=== PATIENT | female | born 1945 | race African-American/Black ===

== ENCOUNTER 2022-12-16 17:46 | Inpatient (IN) | payer BC, OTHER ==
[~2022-12-16] VITALS: Ht 154.9 cm; Wt 50.8 kg
[2022-12-16 20:18] LABS: CLARITY URINE CLEAR (CLEAR); COLOR URINE YELLOW (YELLOW); KETONES URINE TRACE (NEGATIVE); LEUKOCYTE ESTERASE URINE NEGATIVE (NEGATIVE); NITRITE URINE NEGATIVE (NEGATIVE); OCCULT BLOOD URINE NEGATIVE (NEGATIVE); PH URINE 7.5 (4.5-8.0); PROTEIN URINE NEGATIVE (NEGATIVE); SPECIFIC GRAVITY URINE 1.013 (1.005-1.030)
[2022-12-16 20:44] LABS: BASOPHILS % 0.2 % (0.0-2.0); EOSINOPHILS % 0.1 % (0.0-5.0); HEMATOCRIT. 33.5 % (36.0-48.0); HEMOGLOBIN. 11.4 g/dL (12.0-16.0); LYMPHOCYTES % 7.1 % (20.0-50.0); MEAN CORPUSCULAR HEMOGLOBIN 33.2 pg (28.0-32.0); MEAN CORPUSCULAR VOLUME 97.9 fL (81.0-99.0); MONOCYTES % 13.9 % (2.0-8.0); NEUTROPHILS % 78.7 % (40.0-76.0); PLATELET 206 x1000/uL (130-400); RED BLOOD CELL COUNT 3.42 mill/uL (4.2-5.4); RED CELL DISTRIBUTION WIDTH 13.8 % (11.6-14.6)
[2022-12-16 20:50] LABS: CHLORIDE 90 mEq/L (98-107)
[2022-12-17] MEDS ORDERED: DOCUSATE SODIUM 100MG CAPSULE PO PRN (00:15)
[2022-12-17] MEDS ORDERED: ACETAMINOPHEN 325MG TABLET PO PRN ×2 (00:15)
[2022-12-17] MEDS ORDERED: GUAIFENESIN 200MG/10ML SUGAR FREE UDC PO PRN (00:15)
[2022-12-17] MEDS ORDERED: IPRATROPIUM/ALBUTEROL 0.5-3(2.5)MG/3ML NEB HHN PRN (00:15)
[2022-12-17] MEDS ORDERED: ONDANSETRON HCL 4MG/2ML INJ IV PRN (00:15)
[2022-12-17] MEDS ORDERED: POTASSIUM CHLORIDE 20MEQ TABLET SR PO NR (00:30)
[2022-12-17] MEDS: SODIUM CHLORIDE 0.9% 1,000 ML IV SCH ×2 (00:48→14:39)
[2022-12-17 01:01] LABS: PHOSPHORUS 2.4 mg/dL (2.5-4.9)
[2022-12-17 01:40] LABS: VITAMIN B12 SERUM 423 pg/mL (211-911)
[2022-12-17 02:43] LABS: INR 1.1; PROTHROMBIN TIME 11.6 sec (9.6-11.0)
[2022-12-17] MEDS ORDERED: ATEN-42 PO (04:03)
[2022-12-17] MEDS ORDERED: CHOL-36 PO (04:03)
[2022-12-17] MEDS ORDERED: LOVA40TA73 PO (04:03)
[2022-12-17] MEDS ORDERED: CALC-36 PO (04:03)
[2022-12-17 04:26] VITALS: BP 131/53
[2022-12-17 04:30] VITALS: BP 131/53
[2022-12-17 08:00] VITALS: BP 155/67
[2022-12-17] MEDS: ENOXAPARIN 40MG/0.4ML SYR SUBCUT SCH (09:00)
[2022-12-17] MEDS ORDERED: LISINOPRIL 10MG TABLET PO SCH (09:00)
[2022-12-17 09:59] LABS: HEMATOCRIT. 28.4 % (36.0-48.0); HEMOGLOBIN. 9.8 g/dL (12.0-16.0); MEAN CORPUSCULAR HEMOGLOBIN 33.1 pg (28.0-32.0); MEAN CORPUSCULAR VOLUME 95.8 fL (81.0-99.0); MEAN PLATELET VOLUME 8.6 fl (7.4-10.4); PLATELET 177 x1000/uL (130-400); RED BLOOD CELL COUNT 2.97 mill/uL (4.2-5.4); RED CELL DISTRIBUTION WIDTH 13.7 % (11.6-14.6)
[2022-12-17 10:09] LABS: CHLORIDE 96 mEq/L (98-107)
[2022-12-17 10:22] LABS: CREATINE KINASE 245 IU/L (26-192); HDL CHOLESTEROL 93 mg/dL (40-59); LDL CHOLESTEROL 47 mg/dL (5-100); T4 FREE 1.39 ng/dL (0.76-1.46)
[2022-12-17 10:42] LABS: PLATELET ESTIMATE NORMAL
[2022-12-17 12:00] VITALS: BP 136/73
[2022-12-17] MEDS: AMLODIPINE 10MG TABLET PO SCH (14:12)
[2022-12-17] MEDS ORDERED: SODIUM PHOS,M-BASIC-D-BASIC 30 MM in DEXT 5% WATER 500 ML IV ONE (15:00)
[2022-12-17] MEDS ORDERED: KCL 20MEQ/100ML PREMIX 100 ML IV NR (15:00)
[2022-12-17 16:00] VITALS: BP 130/70
[2022-12-17 16:45] LABS: CREATINE KINASE 269 IU/L (26-192)
[2022-12-17] MEDS ORDERED: ALBUTEROL (0.083%) 2.5MG/3ML NEB HHN PRN (17:15)
[2022-12-17] MEDS ORDERED: IPRATROPIUM BROMIDE (0.02%) 0.5MG/2.5ML NEB HHN PRN (17:15)
[2022-12-17] MEDS: MULTIVITAMINS,THER W-MINERALS TABLET PO SCH (17:59)
[2022-12-17 20:00] VITALS: BP 129/69
[2022-12-17] MEDS: FAMOTIDINE 20MG TABLET PO SCH (21:06)
[2022-12-18 00:15] VITALS: BP 143/79
[2022-12-18] MEDS: SODIUM CHLORIDE 0.9% 1,000 ML IV SCH (02:58)
[2022-12-18] MEDS ORDERED: CLONIDINE 0.1MG TABLET PO PRN (03:45)
[2022-12-18 04:00] VITALS: BP 166/83
[2022-12-18 08:00] VITALS: BP 158/79
[2022-12-18] MEDS: MULTIVITAMINS,THER W-MINERALS TABLET PO SCH (08:27)
[2022-12-18] MEDS: ENOXAPARIN 40MG/0.4ML SYR SUBCUT SCH (08:34)
[2022-12-18] MEDS: AMLODIPINE 10MG TABLET PO SCH (08:34)
[2022-12-18 09:25] LABS: HEMOGLOBIN 11.4 g/dL (12.0-16.0); MEAN CORPUSCULAR HEMOGLOBIN 32.9 pg (28.0-32.0); MEAN CORPUSCULAR VOLUME 95.4 fL (81.0-99.0); PLATELET 199 x1000/uL (130-400); RED BLOOD CELL COUNT 3.46 mill/uL (4.2-5.4); RED CELL DISTRIBUTION WIDTH 13.7 % (11.6-14.6)
[2022-12-18 09:33] LABS: CHLORIDE 87 mEq/L (98-107)
[2022-12-18] MEDS: ASCORBIC ACID 250 MG TABLET PO SCH (09:59)
[2022-12-18] MEDS: ZINC SULFATE 220 MG ( 50 ) CAPSULE PO SCH (09:59)
[2022-12-18] MEDS ORDERED: AZITHROMYCIN 500 MG in DEXT 5% WATER 250 ML IV SCH (10:00)
[2022-12-18 10:27] LABS: HDL CHOLESTEROL 98 mg/dL (40-59); PHOSPHORUS 2.8 mg/dL (2.5-4.9); T4 FREE 1.45 ng/dL (0.76-1.46)
[2022-12-18] MEDS ORDERED: SODIUM CHLORIDE 0.45% 1,000 ML IV SCH (11:00)
[2022-12-18] MEDS ORDERED: POTASSIUM CHLORIDE 20MEQ TABLET SR PO NR (11:15)
[2022-12-18] MEDS ORDERED: SODIUM CHLORIDE 0.9% 1,000 ML IV SCH (11:30)
[2022-12-18] MEDS: ATENOLOL 25MG TABLET PO SCH (11:31)
[2022-12-18 12:00] VITALS: BP 123/65
[2022-12-18] MEDS ORDERED: SODIUM PHOS,M-BASIC-D-BASIC 20 MM in DEXT 5% WATER 243.3333 ML IV NR (13:00)
[2022-12-18] MEDS: KCL 20MEQ/100ML PREMIX 100 ML IV SCH ×2 (13:19→15:52)
[2022-12-18 15:02] LABS: LDL CHOLESTEROL 54 mg/dL (5-100)
[2022-12-18 16:00] VITALS: BP 113/74
[2022-12-18] MEDS: SODIUM CHLORIDE 0.9% IV SCH (17:56)
[2022-12-18] MEDS: POTASSIUM ACETATE IV SCH (17:56)
[2022-12-18] MEDS: VANCOMYCIN 1000MG/20ML ORAL SOLN PO SCH (17:57)
[2022-12-18 20:00] VITALS: BP 141/89
[2022-12-18] MEDS ORDERED: MEDICATION NOT ON FORMULARY EA (Lovastatin 40 MG) PO SCH (21:00)
[2022-12-18] MEDS ORDERED: ATORVASTATIN CALCIUM 10MG TABLET PO SCH (21:00)
[2022-12-18] MEDS: FAMOTIDINE 20MG TABLET PO SCH (22:25)
[2022-12-18 23:38] LABS: CREATINE KINASE MB FRACTION 8.7 ng/mL (0.5-3.6)
[2022-12-19] VITALS: BP 162/88
[2022-12-19] MEDS: VANCOMYCIN 1000MG/20ML ORAL SOLN PO SCH ×3 (00:54→12:00)
[2022-12-19 04:00] VITALS: BP 156/95
[2022-12-19 06:39] LABS: HEMATOCRIT 37.8 % (36.0-48.0); MEAN CORPUSCULAR HEMOGLOBIN 32.8 pg (28.0-32.0); MEAN CORPUSCULAR VOLUME 95.5 fL (81.0-99.0); PLATELET 212 x1000/uL (130-400); RED BLOOD CELL COUNT 3.96 mill/uL (4.2-5.4); RED CELL DISTRIBUTION WIDTH 13.6 % (11.6-14.6)
[2022-12-19] MEDS: POTASSIUM ACETATE IV SCH ×3 (06:44→15:08)
[2022-12-19] MEDS: SODIUM CHLORIDE 0.9% IV SCH ×3 (06:44→15:08)
[2022-12-19 06:56] LABS: CHLORIDE 89 mEq/L (98-107); CREATINE KINASE 808 IU/L (26-192); CREATINE KINASE MB FRACTION 9.7 ng/mL (0.5-3.6); PHOSPHORUS 2.4 mg/dL (2.5-4.9)
[2022-12-19 08:00] VITALS: BP 169/94
[2022-12-19] MEDS: ATENOLOL 25MG TABLET PO SCH (08:49)
[2022-12-19] MEDS: MULTIVITAMINS,THER W-MINERALS TABLET PO SCH (08:49)
[2022-12-19] MEDS: ENOXAPARIN 40MG/0.4ML SYR SUBCUT SCH (08:49)
[2022-12-19] MEDS: ZINC SULFATE 220 MG ( 50 ) CAPSULE PO SCH (08:49)
[2022-12-19] MEDS: AMLODIPINE 10MG TABLET PO SCH (08:50)
[2022-12-19] MEDS: ASCORBIC ACID 250 MG TABLET PO SCH (08:50)
[2022-12-19 12:00] VITALS: BP 130/90
[2022-12-19 14:13] LABS: BG BASE EXCESS 0.9 mmol/L (-2.0-2.0); BG CARBOXYHEMOGLOBIN 0.9 % (0.5-1.5); BG DEOXYHEMOGLOBIN 2.7 % (0.0-5.0); BG FRACTION INSPIRED OXYGEN 21; BG HCO3 ACT 23.8 mmol/L (22.0-26.0); BG METHEMOGLOBIN 0.3 % (0.0-1.5); BG OXYGEN SATURATION 97.3 % (92.0-98.5); BG OXYHEMOGLOBIN 96.1 % (94.0-97.0); BG PCO2 32.5 mmHg (35.0-45.0); BG PH 7.483 (7.350-7.450); BG PO2 90.4 mmHg (75.0-100.0); BG SAMPLE SITE RIGHT BRACHIAL; BG TOTAL HEMOGLOBIN 12.5 g/dL (12.0-18.0); BG VENT MODE ROOM AIR
[2022-12-19] MEDS ORDERED: CLOPIDOGREL 75MG TABLET PO SCH (15:45)
[2022-12-19 16:00] VITALS: BP 135/77
[2022-12-19] MEDS ORDERED: PIPERACILLIN/TAZOBACTAM 3.375 G in DEXTROSE 5% WATER 50 ML IV SCH (16:00)
[2022-12-19] MEDS ORDERED: LEVOFLOXACIN 500MG PREMIX 100 ML IV SCH (17:00)
[2022-12-19] MEDS ORDERED: SODIUM PHOS,M-BASIC-D-BASIC 30 MM in DEXT 5% WATER 500 ML IV NR (17:30)
[2022-12-19 20:00] VITALS: BP 136/82
[2022-12-19] MEDS ORDERED: ENOXAPARIN 60MG/0.6ML SYR SUBCUT SCH (21:00)
[2022-12-19] MEDS: FAMOTIDINE 20MG TABLET PO SCH (21:13)
[2022-12-20] VITALS: BP 130/80
[2022-12-20] MEDS: VANCOMYCIN 1000MG/20ML ORAL SOLN PO SCH ×3 (00:15→05:21)
[2022-12-20 04:00] VITALS: BP 99/60
[2022-12-20] MEDS: SODIUM CHLORIDE 0.9% IV SCH (05:21)
[2022-12-20] MEDS: POTASSIUM ACETATE IV SCH (05:21)
[2022-12-20 06:53] LABS: HEMATOCRIT 30.4 % (36.0-48.0); HEMOGLOBIN 10.7 g/dL (12.0-16.0); MEAN CORPUSCULAR HEMOGLOBIN 33.3 pg (28.0-32.0); PLATELET 184 x1000/uL (130-400); RED CELL DISTRIBUTION WIDTH 13.7 % (11.6-14.6)
[2022-12-20 07:20] LABS: CHLORIDE 89 mEq/L (98-107)
[2022-12-20 07:27] LABS: AMYLASE 104 IU/L (25-115); PHOSPHORUS 6.5 mg/dL (2.5-4.9)
[2022-12-20 08:00] VITALS: BP 105/62
[2022-12-20 09:10] LABS: VITAMIN B12 SERUM 1017 pg/mL (211-911)
[2022-12-20] MEDS: ASPIRIN 81MG TABLET PO SCH (09:53)
[2022-12-20] MEDS: ATENOLOL 25MG TABLET PO SCH (09:54)
[2022-12-20] MEDS: MULTIVITAMINS,THER W-MINERALS TABLET PO SCH (09:54)
[2022-12-20] MEDS: ZINC SULFATE 220 MG ( 50 ) CAPSULE PO SCH (09:54)
[2022-12-20] MEDS: ASCORBIC ACID 250 MG TABLET PO SCH (09:54)
[2022-12-20] MEDS: AMLODIPINE 10MG TABLET PO SCH (09:54)
[2022-12-20] MEDS ORDERED: SODIUM CHLORIDE 1000MG TABLET PO SCH (10:45)
[2022-12-20 11:24] LABS: CREATINE KINASE MB FRACTION 9.4 ng/mL (0.5-3.6)
[2022-12-20 12:00] VITALS: BP 110/68
[2022-12-20 12:41] LABS: CLARITY URINE CLEAR (CLEAR); COLOR URINE YELLOW (YELLOW); KETONES URINE TRACE (NEGATIVE); LEUKOCYTE ESTERASE URINE NEGATIVE (NEGATIVE); NITRITE URINE NEGATIVE (NEGATIVE); OCCULT BLOOD URINE NEGATIVE (NEGATIVE); PROTEIN URINE NEGATIVE (NEGATIVE); UROBILINOGEN URINE 0.2 E.U./dL (0.2-1.0)
[2022-12-20 13:26] LABS: SODIUM URINE RANDOM 91 mEq/L
[2022-12-20 16:00] VITALS: BP 119/74
[2022-12-20 20:00] VITALS: BP 122/58
[2022-12-20] MEDS: FAMOTIDINE 20MG TABLET PO SCH (20:58)
[2022-12-20] MEDS: ENOXAPARIN 30MG/0.3ML SYR SUBCUT SCH (20:59)
[2022-12-20 21:02] LABS: HEMATOCRIT 30.5 % (36.0-48.0); HEMOGLOBIN 10.5 g/dL (12.0-16.0)
[2022-12-20] MEDS: POTASSIUM ACETATE 20 MEQ in SODIUM CHLORIDE 0.9% 1,000 ML IV SCH (22:33)
[2022-12-21] VITALS: BP 122/70
[2022-12-21 04:00] VITALS: BP 148/70
[2022-12-21 07:27] LABS: HEMATOCRIT 29.9 % (36.0-48.0); HEMOGLOBIN 10.5 g/dL (12.0-16.0); MEAN CORPUSCULAR HEMOGLOBIN 33.2 pg (28.0-32.0); MEAN CORPUSCULAR VOLUME 94.5 fL (81.0-99.0); PLATELET 173 x1000/uL (130-400); RED BLOOD CELL COUNT 3.17 mill/uL (4.2-5.4); RED CELL DISTRIBUTION WIDTH 13.4 % (11.6-14.6)
[2022-12-21 08:00] VITALS: BP 126/68
[2022-12-21 08:54] LABS: CHLORIDE 93 mEq/L (98-107)
[2022-12-21 09:04] LABS: PHOSPHORUS 1.8 mg/dL (2.5-4.9)
[2022-12-21] MEDS ORDERED: POTASSIUM CHLORIDE INJ 40 MEQ in DEXT 5% WATER 250 ML IV ONE (09:30)
[2022-12-21] MEDS: MULTIVITAMINS,THER W-MINERALS TABLET PO SCH (09:45)
[2022-12-21] MEDS: ZINC SULFATE 220 MG ( 50 ) CAPSULE PO SCH (09:45)
[2022-12-21] MEDS: ASPIRIN 81MG TABLET PO SCH (09:45)
[2022-12-21] MEDS: ATENOLOL 25MG TABLET PO SCH (09:45)
[2022-12-21] MEDS: AMLODIPINE 10MG TABLET PO SCH (09:45)
[2022-12-21] MEDS: ASCORBIC ACID 250 MG TABLET PO SCH (09:46)
[2022-12-21] MEDS ORDERED: KCL 20MEQ/100ML X 2 FOR TOTAL KCL 40MEQ/200ML IV SCH (10:30)
[2022-12-21] MEDS ORDERED: POTASSIUM PHOS,M-BASIC-D-BASIC 30 MMOL in DEXT 5% WATER 500 ML IV NR (11:00)
[2022-12-21 12:00] VITALS: BP 132/72
[2022-12-21 16:00] VITALS: BP 137/71
[2022-12-21 20:00] VITALS: BP 148/61
[2022-12-21] MEDS: ENOXAPARIN 30MG/0.3ML SYR SUBCUT SCH (21:52)
[2022-12-21] MEDS: FAMOTIDINE 20MG TABLET PO SCH (21:52)
[2022-12-22] VITALS (7 sets, daily range): BP systolic 104–140; BP diastolic 50–71
[2022-12-22] MEDS: POTASSIUM ACETATE 20 MEQ in SODIUM CHLORIDE 0.9% 1,000 ML IV SCH ×3 (01:03→23:23)
[2022-12-22 08:43] LABS: MEAN CORPUSCULAR HEMOGLOBIN 32.5 pg (28.0-32.0); MEAN CORPUSCULAR VOLUME 93.8 fL (81.0-99.0); PLATELET 180 x1000/uL (130-400); RED BLOOD CELL COUNT 2.77 mill/uL (4.2-5.4); RED CELL DISTRIBUTION WIDTH 13.7 % (11.6-14.6)
[2022-12-22 09:10] LABS: CHLORIDE 93 mEq/L (98-107)
[2022-12-22 09:18] LABS: BG BASE EXCESS 0.9 mmol/L (-2.0-2.0); BG CARBOXYHEMOGLOBIN 0.3 % (0.5-1.5); BG DEOXYHEMOGLOBIN 2.6 % (0.0-5.0); BG FRACTION INSPIRED OXYGEN 21; BG HCO3 ACT 23.7 mmol/L (22.0-26.0); BG METHEMOGLOBIN 0.3 % (0.0-1.5); BG OXYGEN SATURATION 97.4 % (92.0-98.5); BG OXYHEMOGLOBIN 96.8 % (94.0-97.0); BG PCO2 30.9 mmHg (35.0-45.0); BG PH 7.502 (7.350-7.450); BG PO2 97.3 mmHg (75.0-100.0); BG SAMPLE SITE LEFT BRACHIAL; BG TOTAL HEMOGLOBIN 9.7 g/dL (12.0-18.0); BG VENT MODE ROOM AIR
[2022-12-22] MEDS: MULTIVITAMINS,THER W-MINERALS TABLET PO SCH (09:19)
[2022-12-22] MEDS: ASPIRIN 81MG TABLET PO SCH (09:19)
[2022-12-22] MEDS: AMLODIPINE 10MG TABLET PO SCH (09:19)
[2022-12-22] MEDS: ATENOLOL 25MG TABLET PO SCH (09:20)
[2022-12-22] MEDS: ZINC SULFATE 220 MG ( 50 ) CAPSULE PO SCH (09:20)
[2022-12-22 09:21] LABS: PHOSPHORUS 1.9 mg/dL (2.5-4.9)
[2022-12-22] MEDS: ASCORBIC ACID 250 MG TABLET PO SCH (09:23)
[2022-12-22] MEDS ORDERED: SODIUM PHOS,M-BASIC-D-BASIC 15 MM in DEXT 5% WATER 245 ML IV NR (11:00)
[2022-12-22] MEDS ORDERED: SODIUM BICARBONATE 650 MG TABLET PO SCH (11:30)
[2022-12-22] MEDS: FAMOTIDINE 20MG TABLET PO SCH (21:00)
[2022-12-22] MEDS: ENOXAPARIN 30MG/0.3ML SYR SUBCUT SCH (22:03)
[2022-12-23] VITALS: BP 104/60
[2022-12-23 04:00] VITALS: BP 105/56
[2022-12-23 06:26] LABS: HEMOGLOBIN. 8.3 g/dL (12.0-16.0); MEAN CORPUSCULAR HEMOGLOBIN 32.4 pg (28.0-32.0); MEAN CORPUSCULAR VOLUME 93.6 fL (81.0-99.0); MEAN PLATELET VOLUME 8.1 fl (7.4-10.4); PLATELET 192 x1000/uL (130-400); RED BLOOD CELL COUNT 2.57 mill/uL (4.2-5.4); RED CELL DISTRIBUTION WIDTH 13.5 % (11.6-14.6)
[2022-12-23 07:19] LABS: CHLORIDE 97 mEq/L (98-107)
[2022-12-23 08:00] VITALS: BP 126/60
[2022-12-23] MEDS: ZINC SULFATE 220 MG ( 50 ) CAPSULE PO SCH (09:46)
[2022-12-23] MEDS: ASPIRIN 81MG TABLET PO SCH (09:46)
[2022-12-23] MEDS: MULTIVITAMINS,THER W-MINERALS TABLET PO SCH (09:46)
[2022-12-23] MEDS: AMLODIPINE 10MG TABLET PO SCH (09:46)
[2022-12-23] MEDS: ASCORBIC ACID 250 MG TABLET PO SCH (09:47)
[2022-12-23] MEDS: ATENOLOL 25MG TABLET PO SCH (09:47)
[2022-12-23] MEDS ORDERED: DEXT 5%/0.9% NACL 1,000 ML IV SCH (10:15)
[2022-12-23] MEDS: POTASSIUM ACETATE 20 MEQ in SODIUM CHLORIDE 0.9% 1,000 ML IV SCH ×2 (10:39→20:08)
[2022-12-23] MEDS: LEVOFLOXACIN 500MG PREMIX 100 ML IV SCH (11:16)
[2022-12-23 12:00] VITALS: BP 120/57
[2022-12-23 16:00] VITALS: BP 107/58
[2022-12-23 16:32] LABS: PLATELET ESTIMATE NORMAL
[2022-12-23 20:00] VITALS: BP 107/56
[2022-12-23] MEDS: FAMOTIDINE 20MG TABLET PO SCH (21:27)
[2022-12-23] MEDS: ENOXAPARIN 30MG/0.3ML SYR SUBCUT SCH (21:27)
[2022-12-24] VITALS: BP 92/42
[2022-12-24 04:00] VITALS: BP 97/53
[2022-12-24] MEDS: POTASSIUM ACETATE 20 MEQ in SODIUM CHLORIDE 0.9% 1,000 ML IV SCH ×2 (06:07→14:17)
[2022-12-24 07:17] LABS: HEMATOCRIT 21.6 % (36.0-48.0); HEMOGLOBIN 7.5 g/dL (12.0-16.0); MEAN CORPUSCULAR HEMOGLOBIN 32.5 pg (28.0-32.0); MEAN CORPUSCULAR VOLUME 94.4 fL (81.0-99.0); PLATELET 205 x1000/uL (130-400); RED BLOOD CELL COUNT 2.29 mill/uL (4.2-5.4); RED CELL DISTRIBUTION WIDTH 13.9 % (11.6-14.6)
[2022-12-24 08:00] VITALS: BP 103/50
[2022-12-24 08:26] LABS: CHLORIDE 102 mEq/L (98-107)
[2022-12-24 08:31] LABS: PHOSPHORUS 1.1 mg/dL (2.5-4.9)
[2022-12-24] MEDS: ZINC SULFATE 220 MG ( 50 ) CAPSULE PO SCH (09:00)
[2022-12-24] MEDS: MULTIVITAMINS,THER W-MINERALS TABLET PO SCH (09:00)
[2022-12-24] MEDS: ATENOLOL 25MG TABLET PO SCH (09:00)
[2022-12-24] MEDS: ASPIRIN 81MG TABLET PO SCH (09:00)
[2022-12-24] MEDS: ASCORBIC ACID 250 MG TABLET PO SCH (09:00)
[2022-12-24] MEDS ORDERED: SODIUM PHOS,M-BASIC-D-BASIC 15 MM in DEXT 5% WATER 250 ML IV SCH (11:00)
[2022-12-24] MEDS: LEVOFLOXACIN 500MG PREMIX 100 ML IV SCH (11:01)
[2022-12-24 12:00] VITALS: BP 86/47
[2022-12-24] MEDS ORDERED: SODIUM CHLORIDE 0.9% 250 ML IV SCH (14:00)
[2022-12-24 16:00] VITALS: BP 80/50
[2022-12-24 20:00] VITALS: BP 87/47
[2022-12-24] MEDS: FAMOTIDINE 20MG TABLET PO SCH (22:09)
[2022-12-24] MEDS: ENOXAPARIN 30MG/0.3ML SYR SUBCUT SCH (22:09)
[2022-12-25] VITALS: BP 96/51
[2022-12-25] MEDS: POTASSIUM ACETATE 20 MEQ in SODIUM CHLORIDE 0.9% 1,000 ML IV SCH ×2 (01:58→09:48)
[2022-12-25 04:00] VITALS: BP 94/58
[2022-12-25 06:53] LABS: BASOPHILS % 0.1 % (0.0-2.0); EOSINOPHILS % 0.3 % (0.0-5.0); HEMATOCRIT. 21.8 % (36.0-48.0); HEMOGLOBIN. 7.5 g/dL (12.0-16.0); LYMPHOCYTES % 7.2 % (20.0-50.0); MEAN CORPUSCULAR HEMOGLOBIN 32.6 pg (28.0-32.0); MEAN PLATELET VOLUME 7.8 fl (7.4-10.4); MONOCYTES % 10.3 % (2.0-8.0); NEUTROPHILS % 82.1 % (40.0-76.0); PLATELET 263 x1000/uL (130-400); RED BLOOD CELL COUNT 2.32 mill/uL (4.2-5.4); RED CELL DISTRIBUTION WIDTH 13.7 % (11.6-14.6)
[2022-12-25 07:20] LABS: CHLORIDE 108 mEq/L (98-107); PHOSPHORUS 1.7 mg/dL (2.5-4.9)
[2022-12-25 08:00] VITALS: BP 131/81
[2022-12-25] MEDS: ATENOLOL 25MG TABLET PO SCH (08:30)
[2022-12-25] MEDS: ASPIRIN 81MG TABLET PO SCH (09:00)
[2022-12-25] MEDS: MULTIVITAMINS,THER W-MINERALS TABLET PO SCH (09:00)
[2022-12-25] MEDS: ZINC SULFATE 220 MG ( 50 ) CAPSULE PO SCH (09:00)
[2022-12-25] MEDS: ASCORBIC ACID 250 MG TABLET PO SCH (09:00)
[2022-12-25] MEDS ORDERED: VIT1CAPS26 PO (10:34)
[2022-12-25 12:00] VITALS: BP 113/44
[2022-12-25] MEDS: LEVOFLOXACIN 500MG PREMIX 100 ML IV SCH (12:23)
[2022-12-25 12:46] VITALS: BP 113/44
== END 2022-12-25 14:20 | disposition home or self-care (01) | DRG 871 ==
LOC: ER 17:46 → MICUSO 22:39 → EDBEDREQTM 23:19 → EDBEDREQ 23:19 → 7WST 12-17 04:00 → 7EST 12-18 03:34
PROVIDERS: ADMIT Internal Medicine; ATTEND Internal Medicine
DX: A41.89 Other specified sepsis (principal); I21.4 Non-ST elevation (NSTEMI) myocardial infarction; U07.1 COVID-19; J12.82 Pneumonia due to coronavirus disease 2019; N17.0 Acute kidney failure with tubular necrosis; E87.1 Hypo-osmolality and hyponatremia; G93.40 Encephalopathy, unspecified; E46 Unspecified protein-calorie malnutrition; N13.30 Unspecified hydronephrosis; I95.1 Orthostatic hypotension; E86.0 Dehydration; I10 Essential (primary) hypertension; E87.6 Hypokalemia; E83.39 Other disorders of phosphorus metabolism; D63.8 Anemia in other chronic diseases classified elsewhere; Z96.659 Presence of unspecified artificial knee joint; E87.8 Other disorders of electrolyte and fluid balance, not elsewhere classified; E86.1 Hypovolemia; R13.10 Dysphagia, unspecified; Z88.0 Allergy status to penicillin; Z88.2 Allergy status to sulfonamides; Z79.899 Other long term (current) drug therapy; W19.XXXA Unspecified fall, initial encounter; Y93.89 Activity, other specified; Y92.009 Unspecified place in unspecified non-institutional (private) residence as the place of occurrence of the external cause; Y99.8 Other external cause status
CPT/HCPCS: 36415; 36600; 71045; 76700; 80048; 80053; 80061; 81003; 82150; 82306; 82375; 82550; 82553; 82607; 82705; 82728; 82746; 82805; 82962; 83036; 83605; 83615; 83735; 83880; 83930; 83935; 84100; 84145; 84300; 84439; 84443; 84484; 85014; 85018; 85025; 85027; 85379; 85651; 86850; 86900; 87015; 87045; 87426; 87427; 87449; 87493; 89055; 92610; 93005; 93306; 93880; 93970; 97162; 97165; 97530; 99285; A6261; C1893; J0456; J1650; J1956; J2543; J3370; J3480; J3490; J7030; J7042; J7060; A4315